=== PATIENT | male | born 1965 | race Caucasian/White ===

== ENCOUNTER 2017-10-19 10:06 | Observation (INO) | payer SELFPAY ==
[2017-10-19 10:44] LABS: #Eosinphils 0.1 thou/uL (0.0-0.7); #Lymphocytes 1.7 thou/uL (1.20-3.40); #Monocytes 0.4 thou/uL (0.11-0.59); %Basophils 0.7 % (0.0-1.0); %Eosinophils 1.3 % (0.0-10.0); %Lymphocytes 33.7 % (21.0-51.0); %Monocytes 6.7 % (0.0-10.0); %Neutrophils 57.6 % (42.0-75.0); Hemoglobin 15.7 g/dL (14.0-18.0); Mean Corpuscular HGB CONC 34.6 g/dL (32.0-36.0); Mean Corpuscular Volume 92.5 fL (78.0-98.0); Mean Platelet Volume 7.5 fL (7.4-10.4); Platelet Count 198 thou/uL (130-400); RBC Distribution Width 11.5 % (11.5-14.5); Red Blood Cell (RBC) Count 4.92 mill/uL (4.70-6.10); White Blood Cell (WBC) Count 5.2 thou/uL (4.8-10.8)
[2017-10-19 11:08] LABS: ALT (SGPT) 15 U/L (8-55); AST (SGOT) 15 U/L (5-34); Albumin 4.6 g/dL (3.5-5.0); Alkaline Phosphatase 66 U/L (40-150); Anion Gap 12 mmol/L (10-20); BUN (Urea Nitrogen) 16 mg/dL (8.4-25.7); Bilirubin, Total 0.9 mg/dL (0.2-1.2); CK (CPK) 82 U/L (30-200); Calc. Creatinine Clearance 0 mL/min (70-130); Calcium 9.6 mg/dL (7.8-10.44); Carbon Dioxide 27 mmol/L (22-29); Chloride 102 mmol/L (98-107); Estimated GFR-MDRD 90; Globulin 2.7 g/dL (2.4-3.5); Glucose 106 mg/dL (70-105); Potassium 4.2 mmol/L (3.5-5.1); Protein, Total 7.3 g/dL (6.0-8.3); Sodium 137 mmol/L (136-145)
[2017-10-19 11:12] LABS: CKMB 1.6 ng/mL (0-6.6); Troponin I Less than 0.010 ng/mL (< 0.028)
--- NOTE | 2017-10-19 11:54 | RAD ---
CHEST ONE VIEW: HISTORY: Shortness of breath. Dyspnea. COMPARISON: Chest radiograph from 04/12/2012. FINDINGS: The lungs are clear. No pneumothorax or effusion. The cardiac silhouette and the mediastinal contou rs are normal. IMPRESSION: No acute intrathoracic abnormality. POS: SIENNA
[2017-10-19] MEDS ORDERED: Aspirin 325 MG TAB ONE (13:01)
[2017-10-19 14:50] LABS: Magnesium 2.2 mg/dL (1.6-2.6); Phosphorus 3.1 mg/dL (2.3-4.7)
[2017-10-19 14:57] LABS: Troponin I Less than 0.010 ng/mL (< 0.028)
[2017-10-19] MEDS ORDERED: Ondansetron HCl/PF 4 MG/2 ML Vial IVP PRN (15:27)
[2017-10-19] MEDS ORDERED: Ondansetron ODT 4 MG TAB PO PRN (15:27)
[2017-10-19] MEDS ORDERED: Calcium Carbonate 500 MG ChewTAB PO PRN (15:27)
[2017-10-19] MEDS ORDERED: Acetaminophen 325 MG TAB PO PRN (15:27)
[2017-10-19] MEDS ORDERED: Nitroglycerin 0.4 MG TAB (25 Tab Bottle) PO PRN (15:27)
[2017-10-19 15:35] VITALS: BMI 28.4
--- NOTE | 2017-10-19 15:53 | HP ---
DATE OF ADMISSION: 10/19/2017 PRIMARY CARE PHYSICIAN: Dr. Santana. CHIEF COMPLAINT: Chest discomfort with palpitations of 1 week duration. HISTORY OF PRESENT ILLNESS: Patient is a 52-year-old male with hypertension who presented to the emergency room with above complaints. The patient was admitted at this facility in 2011 for chest discomfort. He underwent exercise stress test that was negative. An echocardiogram was done that showed normal left ventricular ejection fraction. Over the last one week, the patient has on and off palpitations along with mild chest pressure, nausea, shortness of breath and lightheadedness. He has been having dyspnea on mild to moderate exertion. The chest pressure was moderate in intensity without any aggravating or relieving factor. His heart rate was in 120s on the blood pressure monitor. He is unsure whether his heart rate was regular or irregular. He denies any caffeine use. No drug use reported. No [id number] medications reported. PAST MEDICAL HISTORY: 1. Hypertension. 2. GERD. 3. Claustrophobia. PAST SURGICAL HISTORY: Dental procedures. ALLERGIES: No known drug allergies. CURRENT HOME MEDICATIONS: Lisinopril 15 mg daily and aspirin daily. SOCIAL HISTORY: Patient currently lives at home with his family. No smoking, alcohol, drug use. FAMILY HISTORY: Patient is adopted. REVIEW OF SYSTEMS: The following complete review of systems was negative, unless otherwise mentioned in the HPI or below: Constitutional: Weight loss or gain, ability to conduct usual activities. Skin: Rash, itching. Eyes: Double vision, pain. ENT/Mouth: Nose bleeding, neck stiffness, pain, tenderness. Cardiovascular: Palpitations, dyspnea on exertion, orthopnea. Respiratory: Shortness of breath, wheezing, cough, hemoptysis, fever or night sweats. Gastrointestinal: Poor appetite, abdominal pain, heartburn, nausea, vomiting, constipation, or diarrhea. Genitourinary: Urgency, frequency, dysuria, nocturia. Musculoskeletal: Pain, swelling. Neurologic/Psychiatric: Anxiety, depression. Allergy/Immunologic: Skin rash, bleeding tendency. PHYSICAL EXAMINATION: VITAL SIGNS: Temperature 98, respiration 18, pulse rate of 89 with a blood pressure 127/76 with O2 saturation 99% on room air. GENERAL: A 52-year-old male in no apparent distress. Denies any chest discomfort at this time. HEENT: Head is atraumatic, normocephalic, Sclerae are anicteric. Moist mucous membrane, no oral lesion. NECK: Supple, no JVD appreciated. No carotid bruit. LUNGS: Clear to auscultation bilaterally, no wheezing, rales or rhonchi. HEART: S1, S2 present. Regular rate and rhythm. No murmur, rubs or gallops appreciated. ABDOMEN: Soft, nontender, bowel sounds present. EXTREMITIES: No edema or calf tenderness. NEUROLOGIC: Grossly nonfocal, moves all four extremities. PSYCHIATRIC: Alert, awake, oriented x3. SKIN: Warm and dry. LYMPH NODES: No palpable lymph nodes in the neck. PERIPHERAL VASCULAR: Radial pulses palpable bilaterally. MUSCULOSKELETAL: No joint swelling or tenderness. LABORATORY DATA AND IMAGING DATA: 1. Troponins were negative. 2. Electrolytes were in normal range. Potassium was 4.2, sodium 137. Magnesium 2.2, phosphorus 3.1. 3. CBC showed WBC 5.2 with hemoglobin 15.7. 4. Chest x-ray by my review was negative for infiltrate. 5. EKG by my review showed sinus rhythm. IMPRESSION: 1. Palpitations with chest discomfort of unclear etiology. 2. Hypertension. 3. Claustrophobia. 4. Chronic kidney disease stage 2. 5. GERD. PLAN: 1. The patient will be monitored in the telemetry unit. We will get an echocardiogram. We will keep him n.p.o. past midnight. Cardiology will be consulted in a.m. 2. We will continue lisinopril and aspirin. Vital signs q.4 hourly. We will get serial troponins. Plan of care was discussed with the patient in detail. He stated understanding. OZZY
[2017-10-19 17:19] LABS: Troponin I Less than 0.010 ng/mL (< 0.028)
[2017-10-19] MEDS: Famotidine 20 MG TAB PO SCH (20:13)
[2017-10-20] MEDS ORDERED: ALPRAZolam 0.25 MG TAB PO SCH (00:30)
[2017-10-20] MEDS ORDERED: Melatonin 3 MG TAB PO SCH (00:45)
[2017-10-20] MEDS: Famotidine 20 MG TAB PO SCH (08:22)
[2017-10-20] MEDS ORDERED: Lisinopril 10 MG TAB PO SCH (09:00)
[2017-10-20] MEDS ORDERED: Aspirin 81 mg Enteric Coated Tablet PO SCH (09:00)
[2017-10-20] MEDS ORDERED: Diazepam 5 MG TAB PO SCH (09:15)
--- NOTE | 2017-10-20 13:11 | CON ---
DATE OF CONSULTATION: 10/20/2017 CARDIOLOGY CONSULTATION REASON FOR CONSULTATION: Chest pain and palpitations. HISTORY OF PRESENT ILLNESS: Mr. Chambers is a pleasant 52-year-old white gentleman who [facility] and chest tightness. He states that for last week, he has noticed episodes of palpitations that precipitate chest tightness. The episodes last about 5 or 10 minutes up to 30 m inutes. He checked his blood pressure during one episode and it showed that his heart rate was in th e 120s, did not mention irregular, just elevated heart rate. He had normal blood pressure at that ti me. He has had evaluation of his heart in 2012, he had similar episode where he had chest tightness during palpitations. He had an exercise treadmill only test and an echo, which were all unremarkable . He decided to come in as he had a third episode, which was actually much shorter than the rest of them, but because they were happening more often, he decided to come in for evaluation. PAST MEDICAL HISTORY: 1. Hypertension. 2. Gastroesophageal reflux disease. 3. Claustrophobia. PAST SURGICAL HISTORY: Multiple dental procedures. ALLERGIES: No known drug allergies. OUTPATIENT MEDICATIONS: 1. Lisinopril. 2. Aspirin daily. SOCIAL HISTORY: Lives at home. No alcohol, tobacco or drugs. Currently, unemployed. He is an IT p rogrammer. FAMILY HISTORY: He is adopted, so it is noncontributory. REVIEW OF SYSTEMS: A 12-point review of systems was done and is all negative unless stated in the hi story of present illness. PHYSICAL EXAMINATION: VITAL SIGNS: Temperature 98.4, pulse 59, respiration rate 16, satting 99% on room air, blood pressur e 122/77. GENERAL: Awake, alert, oriented x3, in no distress. HEENT: Normocephalic, atraumatic. NECK: Supple. LUNGS: Clear. CARDIOVASCULAR: S1, S2. No S3 or S4. No murmurs. ABDOMEN: Soft. Positive bowel sounds. EXTREMITIES: No edema. SKIN: Warm and dry. LABORATORY WORK: Reviewed. CBC is unremarkable. Chemistry is unremarkable. Mag and phos were norm al. Troponins were undetectable. Albumin was 4.6. ASSESSMENT AND PLAN: 1. Chest pain, atypical: Related to palpitations. We will further risk stratify with a nuclear str ess test. He is claustrophobic, so we will give him a dose of diazepam before procedure. He agrees to proceed. 2. Echocardiogram to be done. 3. If he rules out and he does not have any arrhythmias or episodes of palpitations during the monit oring in the hospital, he will need some sort of monitoring as an outpatient. This may be prohibitiv e due to cost for him, though will decide. 4. Further recommendation per results of stress test.
[2017-10-20] MEDS ORDERED: ADENOSINE 60 MG/20 ML VIAL ONE (13:16)
--- NOTE | 2017-10-20 13:16 | NM ---
MYOCARDIAL PERFUSION SCAN WITH SPECT IMAGING: HISTORY: Chest pain. TECHNIQUE: Examination is performed using 30.6 millicuries technetium 99m sestamibi on stress images and 9.4 mil licuries on rest images. FINDINGS: This shows a normal distribution of radiopharmaceutical without signs of ischemia or scar. WALL MOTION: There is symmetric contractility to the ventricle. LEFT VENTRICULAR EJECTION FRACTION: Calculated left ventricular ejection fraction is 77%. IMPRESSION: Unremarkable myocardial perfusion scan. POS: DOMI
--- NOTE | 2017-10-20 15:15 | EKG ---
Test Reason : PALPITATIONS Blood Pressure : / mmHG Vent. Rate : 089 BPM Atrial Rate : 089 BPM P-R Int : 136 ms QRS Dur : 104 ms QT Int : 368 ms P-R-T Axes : 073 027 046 degrees QTc Int : 447 ms Normal sinus rhythm Normal ECG Confirmed by ERLIN KELLY DO ([id number]), magazine editor LAYO POTTS ([id number] on 10/20/2017 3:14:35 PM Referred By: Confirmed By:ERLIN KELLY DO
[2017-10-20 15:49] VITALS: BP 109/64; TEMP 97.9
--- NOTE | 2017-10-21 15:07 | DIS ---
DATE OF DISCHARGE: 10/20/2017 DISCHARGE DISPOSITION: Home. FOLLOWUP: 1. Follow up with primary care physician, Dr. Santana in 1 week. 2. Follow up with Dr. Martinez in 2 weeks. Patient was advised to contact, Dr. Martinez's office if he develops any new palpitations. Patient was seen and examined on the day of discharge. Denies any new complaints. No chest pain, sh ortness of breath reported. DISCHARGE MEDICATIONS: Lisinopril 15 mg daily. Patient was advised to continue 81 mg aspirin. BRIEF HOSPITAL COURSE: Patient is a 52-year-old male with hypertension and anxiety presented to the emergency room with chest discomfort along with palpitations of 1-week duration. Please refer to the history and physical for further details. The patient was admitted to the telemetry unit with the diagnosis of chest discomfort, rule out acute coronary syndrome along with palpitations. Telemetry monitoring did not reveal significant arrhythm ias. Patient was seen by cardiology, Dr. Martinez. He underwent a Cardiolite stress test that was neg ative for reversible ischemia. Ejection fraction was 77% without any wall motion abnormality. Echoc ardiogram showed left ventricular ejection fraction of 60%-65% with normal diastolic dysfunction and mild tricuspid regurgitation. He has been cleared by Cardiology for discharge. He will benefit from event monitor if he develops recurrent palpitations. FINAL DIAGNOSES: 1. Chest discomfort, acute coronary syndrome ruled out. 2. Palpitations of unclear etiology, suspected anxiety-induced. 3. Claustrophobia. 4. Chronic kidney disease, stage 2. 5. Gastroesophageal reflux disease. Plan of care was discussed with the patient in detail. He stated understanding.
== END 2017-10-20 17:08 | disposition home or self-care (01) ==
LOC: ERS 10:06 → 2SW 13:41
PROVIDERS: ADMIT Internal Medicine; ATTEND Internal Medicine
DX: R07.89 Other chest pain (principal); R00.2 Palpitations; K21.9 Gastro-esophageal reflux disease without esophagitis; F40.240 Claustrophobia; I12.9 Hypertensive chronic kidney disease with stage 1 through stage 4 chronic kidney disease, or unspecified chronic kidney disease; N18.2 Chronic kidney disease, stage 2 (mild); F41.9 Anxiety disorder, unspecified; Z79.82 Long term (current) use of aspirin; Z79.899 Other long term (current) drug therapy; Z88.2 Allergy status to sulfonamides
CPT/HCPCS: 36415; 71045; 78452; 80053; 82553; 83735; 84100; 84484; 85025; 93005; 93017; 93306; A9500; G0378; J0153